=== PATIENT | female | born 1980 | race Asian ===

== ENCOUNTER 2023-05-11 13:29 | Outpatient (CLI) | payer OTHER, SELFPAY | END 2023-05-11 13:30 | disposition home or self-care (01) | LOC: NFLDREF 05-13 12:17 | PROVIDERS: Visit Provider Obstetrics & Gynecology | DX: Z01.419 Encounter for gynecological examination (general) (routine) without abnormal findings (principal); E66.01 Morbid (severe) obesity due to excess calories; Z13.6 Encounter for screening for cardiovascular disorders | CPT/HCPCS: 80061 ==